=== PATIENT | male | born 1985 | race Caucasian/White ===

== ENCOUNTER 2018-07-22 09:41 | Emergency (ER) | payer SELFPAY ==
[~2018-07-22] VITALS: Ht 170.2 cm; Wt 75.0 kg
[2018-07-22] MEDS ORDERED: IBUPROFEN 800 MG TABLET PO ONE (10:15)
[2018-07-22] MEDS ORDERED: ACETAMINOPHEN 325 MG TABLET PO ONE (10:15)
[2018-07-22 10:45] LABS: INFLUENZA TYPE A POSITIVE FOR TYPE A (NEGATIVE); INFLUENZA TYPE B NEGATIVE FOR TYPE B (NEGATIVE)
[2018-07-22] MEDS ORDERED: OSELTAMIVIR PHOSPHATE 75 MG CAPSULE PO ONE (11:00)
[2018-07-22 12:41] VITALS: BP 132/76
== END 2018-07-22 12:59 | disposition home or self-care (01) ==
LOC: EMS 09:44
DX: J11.1 Influenza due to unidentified influenza virus with other respiratory manifestations (principal); F17.210 Nicotine dependence, cigarettes, uncomplicated
CPT/HCPCS: 87804

== ENCOUNTER 2024-12-11 19:38 | Emergency (ER) | payer OTHER ==
[~2024-12-11] VITALS: Ht 180.3 cm; Wt 109.1 kg
[2024-12-11 19:46] VITALS: BP 142/87; PULSE 109; RESP 16; TEMP 98.4; O2SAT 100
[2024-12-11] MEDS ORDERED: IBUP-1492 PO (22:29)
[2024-12-11] MEDS ORDERED: LIDO-57 TP (22:29)
[2024-12-11] MEDS: KETOROLAC TROMETHAMINE 60 MG/2 ML VIAL IM ONE (22:46)
== END 2024-12-11 22:53 | disposition home or self-care (01) ==
LOC: EMS 19:40
DX: M54.6 Pain in thoracic spine (principal); F17.210 Nicotine dependence, cigarettes, uncomplicated; V89.2XXA Person injured in unspecified motor-vehicle accident, traffic, initial encounter; Y93.89 Activity, other specified; Y92.410 Unspecified street and highway as the place of occurrence of the external cause; Y99.8 Other external cause status
CPT/HCPCS: 99283; 96372; J1885